=== PATIENT | female | born 1990 | race African-American/Black ===

== ENCOUNTER 2020-09-07 16:16 | Emergency (ER) | payer SELFPAY ==
[~2020-09-07] VITALS: Ht 167.6 cm; Wt 65.0 kg
--- NOTE | 2020-09-07 16:49 | NUR ---
PT BIB EMS ON A LEGAL HOLD AFTER MAKING STATEMENTS TO THE POLICE [place] THAT SHE WANTED TO KILL HERSELF. SHE WAS ALSO TAKING HER CLOTHES OFF IN THE MIDDLE OF THE STREET. PT IS INTOXICATED AND WAS RUNNING OUT INTO THE AMBULANCE BAY REFUSING TO COME BACK IN. SECURITY WAS CALLED, PT COMBATIVE AND REFUSED TO GO IN THE ROOM AND REMOVE HER CLOTHES. 4 POINT RESTRAINTS WERE APPLIED. I ASSISTED IN REMOVING HER CLOTHING COVERING HER WITH THE GOWN AT ALL TIMES. 5 BAGS WITH HER BELONGINGS INCLUDING A GOLD BRACELET WERE COLLECTED, LABELED, AND LOCKED UP. GARAGE DOORS CLOSED FOR SAFETY. SITTER OUTSIDE ROOM WITHIN VIEW FOR SAFETY.
--- NOTE | 2020-09-07 16:54 | NUR ---
ORDERS SIGNED FOR 4 POINT RESTRAINTS DUE TO BEHAVIOR BY DR. ROBERTSON.
[2020-09-07 17:45] LABS: BASOPHILS % (AUTO) 1 % (0-1); EOSINOPHILS % (AUTO) 2 % (1-7); LYMPHOCYTES % (AUTO) 38 % (22-44); MEAN CORPUSCULAR HEMOGLOBIN 28.3 pg (27.0-34.8); MEAN CORPUSCULAR HGB CONC 33.9 g/dL (32.4-35.8); MEAN PLATELET VOLUME 7.3 fL (7.4-10.4); MONOCYTES % (AUTO) 4 % (2-9); NEUTROPHILS % (AUTO) 55 % (42-75); PLATELET COUNT 338 x10^3/uL (130-400); RED BLOOD COUNT 4.77 x10^6/uL (3.82-5.3); RED CELL DISTRIBUTION WIDTH 13.9 % (9.6-15.2)
[2020-09-07 17:48] LABS: MD NO
[2020-09-07 17:56] LABS: ALBUMIN 3.9 g/dL (3.4-5.0); ANION GAP 9 mmol/L (5-15); CALCIUM 8.3 mg/dL (8.5-10.1); CHLORIDE 110 mmol/L (98-107); SALICYLATE LEVEL < 1.7 mg/dL (2.8-20.0)
[2020-09-07 17:57] LABS: CREATININE 0.73 mg/dL (0.55-1.02)
--- NOTE | 2020-09-07 18:10 | NUR ---
PT IS AWAKE, CRYING, AGITATED, CONTINUES IN 4 POINT RESTRAINTS, ROOM SECURE, SITTER OUTSIDE THE DOOR.
--- NOTE | 2020-09-07 18:31 | NUR ---
PT CRYING, STATING, "LORD TAKE ME TO HEAVEN". INCREASE EMOTIONAL SUPPORT GIVEN, TOOK RIGHT UPPER ARM RESTRAINT OFF AND LEFT LOWER EXTREMITY RESTRAINT OFF. SITTER REMAINS AT BS, ROOM SECURED
--- NOTE | 2020-09-07 19:18 | NUR ---
ASSUMED CARE FROM ARMIDA WALDEN. [facility], [address], SITTER AT BEDSIDE, ROOM SECURED, [facility].
--- NOTE | 2020-09-07 19:44 | NUR ---
PT TRYING TO GET OUT OF BED AND GRAB AT CURTAIN WITH UNRESTRAINED LIMBS, PT STATING SHE IS ALREADY . SECURITY CALLED TO PLACE PT BACK IN FOUR POINT RESTRAINTS, MD ROBERTSON AWARE. Addendum: 09/07/20 at 1945 by RAMIRO SITTER AT BEDSIDE FOR SAFETY. PT EDUCATED ABOUT RESTRAINTS FOR HER SAFETY.
--- NOTE | 2020-09-07 20:31 | NUR ---
TASK RN: PT REMAINS IN 4 POINT RESTRAINTS. MONITORS REMAIN IN PLACE. SITTER REMAINS AT BEDSIDE. ROOM PARTIALLY SECURED PT IS ON MONITORS.
--- NOTE | 2020-09-07 21:23 | NUR ---
PT STILL REFUSING TO BE BREATHALYZED
--- NOTE | 2020-09-07 21:24 | NUR ---
PT REFUSING TO PROVIDE URINE SAMPLE AT THIS TIME.
--- NOTE | 2020-09-07 21:30 | NUR ---
PT BEING CALM AND COOPERATIVE. PT EDUCATED ON NEED TO STAY IN BED AND ON PT AND STAFF SAFETY. SECURITY AT BEDSIDE TO RELEASE RESTRAINTS AT THIS TIME. PT ALSO AMBULATED DOWN HALLWAY AND USED RESTROOM. PT PROVIDED PERSONAL TAMPON AT THIS TIME WELL. PT RESTING IN GURNEY WITH EYES CLOSED, CATHY AT THIS TIME, [place]. Addendum: 09/07/20 at [address] ROBERTSON AND DR. ANDREWS AWARE OF RESTRAINTS BEING D/C'D.
[2020-09-07] MEDS ORDERED: ZIPRASIDONE 20 MG INJ IM PRN ×2 (22:00)
--- NOTE | 2020-09-07 22:46 | NUR ---
PT CONTINUING TO BE CALM AND COOPERATIVE. SITTER POSITIONED IN DOORWAY WITH DIRECT VIEW OF THE PATIENT, ROOM SECURED. PT STATES NO NEEDS AT THIS TIME. WCTM.
--- NOTE | 2020-09-08 00:20 | NUR ---
PT WANDERING IN HALLWAY WITH SITTER, REFUSING TO GO BACK TO ROOM. SECURITY CALLED TO HELP ASSIST PT BACK TO ROOM. PT EDUCATED ON IMPORTANCE OF STAYING IN ROOM, PT NOW CALM AND COOPERATIVE. WCTM. SITTER IN DOORWAY WITH DIRECT LINE OF VISION TO PT. ROOM SECURED. AWARE.
--- NOTE | 2020-09-08 01:54 | NUR ---
REPORT GIVEN TO ARMIDA HENRIQUEZ.
--- NOTE | 2020-09-08 02:22 | NUR ---
Pt calm and cooprative at this time. Warm blanket given. PO fluids provided and sandwhich given to patient. Sitter outiside room. Pt room secured. Pt free of harm. Will continue to monitor.
--- NOTE | 2020-09-08 02:58 | NUR ---
Pt up to BR, feminine products given. Pt upset with having to be here, explained to patient multiple times why she is here, and why she is on a hold. Grant juice given. Warm blanket given. BA 0.059 Pt back to bed, sitter outside room. Will monitor.
--- NOTE | 2020-09-08 04:46 | NUR ---
Pt calm in bed. No changes. Free of harm, sitter outside room. Waiting on telepsych. Will continue to monitor.
--- NOTE | 2020-09-08 05:34 | NUR ---
Pt speaking with Telepsych Dr Umaña. Pt cooperative and calm in bed at this time. Sitter outside room. Pt free of harm. Will continue to monitor.
[2020-09-08 06:24] VITALS: BP 140/80
--- NOTE | 2020-09-08 06:25 | NUR ---
Pt cleared to be DC'd. All belongings given back to patient. Pt Dressed and ambulatory out of ED without difficulty. Pt states she will take a taxi [place] to the airport. Pt A&O, in decision making capacity. Pt with stable DC VS. DC instuctions reviewed with patient and pt states understanding.
== END 2020-09-08 06:47 | disposition home or self-care (01) ==
LOC: ED 16:46 → EDIP 22:30 → UNDOADMOB 22:30 → ED 09-08 06:41
DX: F10.229 Alcohol dependence with intoxication, unspecified (principal); E87.6 Hypokalemia; R45.851 Suicidal ideations; Y90.0 Blood alcohol level of less than 20 mg/100 ml
CPT/HCPCS: 36415; 80048; 80299; 80320; 80329; 82040; 85025; 99285; G0480